=== PATIENT | male | born 1995 | race Caucasian/White ===

== ENCOUNTER 2017-07-05 16:10 | Emergency (ER) | payer OTHER ==
[2017-07-05 16:17] VITALS: RESP 16; TEMP 98.1; O2SAT 96
[2017-07-05] MEDS ORDERED: CEPHALEXIN 500 MG CAP PO ONE (16:58)
--- NOTE | 2017-07-05 16:59 | EDPHY ---
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 No paresthesia. No sensory motor deficit. No flexor deficits. Occurred shortly prior to arrival. PHYSICAL EXAM (Prior to examination, patient consented to physical exam, hands were washed and my usual and customary physical exam procedures followed) 1) GENERAL: Well-developed, well-nourished, alert and oriented. Appears to be in no acute distress. 2) HEAD: Normocephalic 3) HEENT: sclera anicteric 4) LUNGS: Breathing comfortably. 5) SKIN: Left index finger palmar aspect middle phalanx 2 cm flap laceration. No signs of infection. No foreign body. 6) MUSCULOSKELETAL: FDP, FDS function intact. 7) NEUROLOGIC: Two-point discrimination and full sensation distally Smoking Status: Never smoked Constitutional: Initial Vital Signs Temperature (C) 36.7 C 07/05/17 16:15 Heart Rate 64 07/05/17 16:15 Respiratory Rate 16 07/05/17 16:15 Blood Pressure 138/90 H 07/05/17 16:15 O2 Sat (%) 96 07/05/17 16:15 O2 Delivery Mode Room Air Allergies/Adverse Reactions: No Known Allergies Allergy (Verified 06/02/14 00:46) Home Medications: Medication Instructions Recorded Cephalexin [Keflex] 500 mg PO TID 5 Days cap 07/05/17 MDM/Departure - MDM Procedures: Procedure: Laceration repair. I explained the indications, risks and benefits for both laceration repair and anesthetic administration. Verbal consent was obtained from the patient . The laceration on the left index finger was anesthetized using 0.5% bupivicaine without epinephrine digital nerve block. After anesthetic administered the patient was observed for a period of time and had no apparent adverse effects. The wound was cleaned, prepped, draped in normal sterile fashion and explored to its base. No foreign body seen, no foreign bodies palpated. There were no deep structures involved. No tendon injury was identified. No FDS or FDP dysfunction. The wound was closed with 5 simple interrupted 5 O Prolene sutures. The wound repair was complex. The procedure was performed by myself. Patient has been informed that scarring will occur, although efforts have been made to minimize this. Medications Given: Discontinued Medications Cephalexin HCl (Keflex) 500 mg PO EDNOW ONE PRN Reason: Protocol Stop: 07/05/17 16:59 Last Admin: 07/05/17 17:03 Dose: 500 mg ED Course/Re-evaluation: Patient was re-evaluated with serial examinations. Wound has been sutured. No FDP or FDS dysfunction or gross neurologic dysfunction noted on exam. This is a complex crush injury and the tissue has been reapproximated. I recommended follow up with Hand surgery as well as work comp provider. Started on prophylactic antibiotics. Usual and customary wound precautions and instructions provided. Care of patient under supervision of secondary supervising physician Dr Melendez. - Depart Disposition: Home, Routine, Self-Care Clinical Impression: Laceration of left index finger Qualifiers: Encounter type: initial encounter Damage to nail status: without damage Foreign body presence: without foreign body Qualified Code(s): S61.211A - Laceration without foreign body of left index finger without damage to nail, initial encounter Condition: Good Instructions: Care For Your Stitches (ED), Laceration (ED) Additional Instructions: Return to the ER if you develop redness, swelling, discharge, warmth to the wound, red streaks going up your arm or any other symptoms that concern you. Stand Alone Forms: Work Comp Follow Up Prescriptions: Cephalexin [Keflex] 500 mg PO TID 5 Days cap Referrals: Kassandra Christian MD [Medical Doctor] - 2-3 days, call for appt. (Sutures to be removed in 10 days. You should see your work comp provider and a hand specialist before then.)
[2017-07-05 17:37] VITALS: BP 132/91; PULSE 70
== END 2017-07-05 17:42 | disposition home or self-care (01) ==
PROC: 0HQGXZZ Repair Left Hand Skin, External Approach (ICD-10-PCS; principal; 2017-07-05)
DX: S61.211A Laceration without foreign body of left index finger without damage to nail, initial encounter (principal); W23.1XXA Caught, crushed, jammed, or pinched between stationary objects, initial encounter; Y99.0 Civilian activity done for income or pay; Y93.89 Activity, other specified